=== PATIENT | male | born 1950 | race Caucasian/White ===

== ENCOUNTER 2018-07-11 09:41 | Emergency (ER) | payer OTHER ==
[~2018-07-11] VITALS: Ht 177.8 cm; Wt 83.9 kg
[2018-07-11] MEDS ORDERED: COZAAR50 MG (10:24)
[2018-07-11] MEDS ORDERED: VITAMIN D310000 UNIT (10:24)
== END 2018-07-12 11:42 | disposition home or self-care (01) ==
LOC: ER 09:41
DX: K57.32 Diverticulitis of large intestine without perforation or abscess without bleeding (principal); N28.1 Cyst of kidney, acquired; K76.89 Other specified diseases of liver; N40.0 Benign prostatic hyperplasia without lower urinary tract symptoms

== ENCOUNTER 2022-12-10 06:26 | Outpatient (CLI) | payer OTHER ==
[~2022-12-10 06:26] MED LIST: COZAAR50 MG; VITAMIN D310000 UNIT
== END 2022-12-10 06:29 | disposition home or self-care (01) ==
LOC: LAB 06:26
PROVIDERS: ATTEND Orthopaedic Surgery
DX: I10 Essential (primary) hypertension (principal)

== ENCOUNTER 2022-12-24 10:40 | Day surgery (SDC) | payer OTHER ==
[~2022-12-24 10:40] MED LIST changes: +DUTASTERIDE-TA1 EACH PO
== END 2022-12-24 16:35 | disposition home or self-care (01) ==
LOC: CIR.AMB 10:40
PROVIDERS: ATTEND Orthopaedic Surgery
DX: M75.122 Complete rotator cuff tear or rupture of left shoulder, not specified as traumatic (principal); M75.22 Bicipital tendinitis, left shoulder; M24.112 Other articular cartilage disorders, left shoulder; Z20.822 Contact with and (suspected) exposure to COVID-19